=== PATIENT | male | born 2000 | race Caucasian/White ===

== ENCOUNTER 2024-02-14 15:02 | Outpatient (AMB) | payer OTHER, SELFPAY ==
--- NOTE | 2024-02-14 15:54 | MHC.PC.OV ---
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 ?? Prior PCP:?Venus Quinn. Last office visit/CPE:? 1 yr ago Acute issue(s):? None ?? PMHx:? ADD,. Social Anxiety. Had therapist. SurgHx:? R Jaw surgery. [place] teeth. FHx:? Dad: DM, HTN Mom: HTN. GF: Salivary Gland CA SocHx: Nonsmoker, EtOH None. No drugs PFSH Medical History (Updated 02/14/24 @ 16:24 by Tonny Kirby) TMJ (temporomandibular joint disorder) ADD (attention deficit disorder) Anxiety Surgical History (Updated 02/14/24 @ 16:08 by Yahaira Pepe CMA) [place] teeth extracted Family History (Updated 02/14/24 @ 16:11 by Yahaira Pepe CMA) Mother High blood pressure Father High blood pressure Diabetes Maternal Grandmother High blood pressure Paternal Grandmother High blood pressure Skin cancer Paternal Grandfather Salivary gland cancer Social History (Updated 02/14/24 @ 16:11 by Yahaira Pepe CMA) Housing: House Patient Tobacco Use Status: Never used Tobacco e-Cigarette/Vaping Use: Never Used Second Hand Smoke Exposure: No service: No Current occupational status: unemployed Current occupational exposures/hazards: No Cognitive needs: No Hearing needs: No Vision needs: No Questionnaire PHQ-9 Over the last 2 weeks, how often have you been bothered by any of the following problems? 1. Little interest or pleasure in doing things: not at all 2. Feeling down, depressed, or hopeless: not at all 3. Trouble falling or staying asleep, or sleeping too much: not at all 4. Feeling tired or having little energy: not at all 5. Poor appetite or overeating: not at all 6. Feeling bad about yourself - or that you are a failure or have let yourself or your family down: not at all 7. Trouble concentrating on things, such as reading the newspaper or watching television: more than half the days 8. Moving or speaking so slowly that other people could have noticed. Or the opposite - being so fidgety or restless that you have been moving around a lot more than usual: not at all 9. Thoughts that you would be better off or of hurting yourself in some way: not at all Total score: 2 Depression Screening Interpretation: Negative Depression Screening Done: Yes Source: Developed by Drs. Sal Cotton, Ebony Arce, Samuel Dias and colleagues, with an educational grzegorz from [employer] Thrive Questionnaire Date Thrive assessed: 02/14/24 I am a: Patient What is your living situation today?: I have a steady place to live Within the past 12 months, did the food you bought not last and you didn't have the money to get more?: Never true Within the past 12 months, did you worry whether your food would run out before you got money to buy more?: Never true Do you have trouble paying for medicines?: No Do you have trouble getting transportation to medical appointments?: No Do you have trouble paying your heating and electricity bill?: No Do you have trouble taking care of your child, family member or friend?: No Do you have trouble with day-to-day activities such as bathing, preparing meals, shopping, managing finances, etc.?: No Are you currently unemployed and looking for a job?: Yes Are you interested in more education?: No Please select the resources that you would like help with: None Currently or been in a relationship where the following occur: No concerns reported THRIVE Score: 0 AUDIT C Alcohol Use Questionnaire (AUDIT-C) 1. How often do you have a drink containing alcohol?: Never Total Score: 0 LINDA-7 AMB Questionnaire LINDA-7 Date LINDA - 7 assessed: 02/14/24 Feeling nervous, anxious, or on edge: 2 = More than half the days Not being able to stop or control worryin = Not at all Worrying too much about different things: 0 = Not at all Trouble relaxin = Not at all Being so restless that it is hard to sit still: 0 = Not at all Becoming easily annoyed or irritable: 0 = Not at all Feeling afraid as if something awful might happen: 0 = Not at all Total LINDA-7 score (0-4 normal; 5-9 mild; 10-14 moderate; 15-21 severe): 2 Source: Developed by Drs. Sal Cotton, Ebony Arce, Samuel Dias and colleagues, with an educational grzegorz from [employer] LINDA-7 Assessment Billing LINDA-7 Assessment Tool: LINDA-7 Assessment 91665 Review of Systems Psych Reports anxiety Physical exam (Primary Care) Vital Signs: Last Vital Signs Pulse 73 02/14/24 16:12 Resp 16 02/14/24 16:12 BP 110/68 02/14/24 16:12 Pulse Ox 100 02/14/24 16:12 Oxygen Delivery Method Room Air 02/14/24 16:12 BMI result Body Mass Index 36.2 Tobacco/Smoking Status: Tobacco use Status Tobacco use date assessed 02/14/24 02/14/24 16:14 Patient Tobacco Use Status Never used Tobacco 02/14/24 16:14 e-Cigarette/Vaping Use Never Used 02/14/24 16:14 PHQ-9: PHQ-9 Score PHQ-9: Total score 2 02/17/24 23:57 Depression Screening Interpretation: Negative Thrive Assessment: Date of Thrive Assessment Date Thrive assessed 02/14/24 02/14/24 16:14 Currently or been in a relationship where the following occur: No concerns reported Coding Level of Care Code New Pt Level 3 (96667) Diagnoses ADD (attention deficit disorder) F98.8 Anxiety F41.9 Laboratory exam ordered as part of routine general medical examination Z00.00 Additional Codes LINDA-7 Assessment Billing - LINDA-7 Assessment Tool: LINDA-7 Assessment 97843 ([id number]) Assessment & Plan Assessment & Plan (1) ADD (attention deficit disorder): Code(s): F98.8 - Other specified behavioral and emotional disorders with onset usually occurring in childhood and adolescence Category: Medical Plan: H/o ADD in prior pcps records sending script to trial adderal 10 mg daily (2) Anxiety: Code(s): F41.9 - Anxiety disorder, unspecified Category: Medical Plan: Will monitor (3) Laboratory exam ordered as part of routine general medical examination: Code(s): Z00.00 - Encounter for general adult medical examination without abnormal findings Category: Medical Plan: Check labs Orders: Orders AMB EKG-In Office 02/14/24 F98.8 - Other specified behavioral and emotional disorders with onset usually occurring in childhood and adolescence Free T4 (Free Thyroxine) 02/14/24 E03.9 - Hypothyroidism, unspecified, F98.8 - Other specified behavioral and emotional disorders with onset usually occurring in childhood and adolescence Triiodothyronine T3 Total 02/14/24 E03.9 - Hypothyroidism, unspecified, F98.8 - Other specified behavioral and emotional disorders with onset usually occurring in childhood and adolescence Comprehensive Adrian. Panel Fast 02/14/24 F98.8 - Other specified behavioral and emotional disorders with onset usually occurring in childhood and adolescence, Z00.00 - Encounter for general adult medical examination without abnormal findings LDL Cholesterol Direct 02/14/24 E78.5 - Hyperlipidemia, unspecified, F98.8 - Other specified behavioral and emotional disorders with onset usually occurring in childhood and adolescence Lipid Panel 02/14/24 F98.8 - Other specified behavioral and emotional disorders with onset usually occurring in childhood and adolescence, Z00.00 - Encounter for general adult medical examination without abnormal findings Thyroid Stimulating Hormone 02/14/24 E03.9 - Hypothyroidism, unspecified, F98.8 - Other specified behavioral and emotional disorders with onset usually occurring in childhood and adolescence Medications: New dextroamphetamine-amphetamine 10 mg ER (Adderall XR) MassPat. Edified. Partial Fill upon patient request. 10 mg PO QAM 28 days 28 caps 0RF F98.8 - Other specified behavioral and emotional disorders with onset usually occurring in childhood and adolescence
[2024-02-14 16:12] VITALS: BP 110/68; PULSE 73; RESP 16; O2SAT 100; BMI 36.2
== END 2024-02-14 17:07 | disposition home or self-care (01) ==
PROVIDERS: PCP Family Medicine; Visit Provider Family Medicine
DX: F98.8 Other specified behavioral and emotional disorders with onset usually occurring in childhood and adolescence (principal); F41.9 Anxiety disorder, unspecified; Z00.00 Encounter for general adult medical examination without abnormal findings

== ENCOUNTER → 2024-02-14 15:02 | Outpatient (BNVA) | payer OTHER, SELFPAY | PROVIDERS: PCP Family Medicine; Visit Provider Family Medicine | DX: F98.8 Other specified behavioral and emotional disorders with onset usually occurring in childhood and adolescence (principal); F41.9 Anxiety disorder, unspecified | CPT/HCPCS: 96127 ==

== ENCOUNTER 2024-02-25 07:51 | Outpatient (REF) | payer OTHER, SELFPAY ==
[2024-02-25 11:39] LABS: Alanine Aminotransferase 59 U/L (0-40); Albumin Level 4.5 g/dL (3.5-5.0); Alkaline Phosphatase 108 U/L (39-117); Anion Gap 11 (12-20); Aspartate Amino Transferase 35 U/L (5-37); Bilirubin Total 0.8 mg/dL (0.0-1.0); Blood Urea Nitrogen 13 mg/dL (9-16); Carbon Dioxide 30 mmol/L (22-29); Chloride 105 mmol/L (96-108); Cholesterol 199 mg/dL (<200); Estimated Glomerular Filt Rate > 60; Glucose Fasting 84 mg/dL (60-99); HDL Cholesterol 35 mg/dL (>40); LDL Cholesterol Calculated 123 mg/dL (<100); Potassium 4.2 mmol/L (3.3-5.1); Sodium 142 mmol/L (135-145); Total Protein 7.6 g/dL (6.5-8.0); Triglycerides 206 mg/dL (<150)
[2024-02-25 11:57] LABS: Thyroid Stimulating Hormone 1.93 uIU/mL (0.32-4.0)
[2024-02-26 07:43] LABS: Triiodothyronine T3 Total 124 ng/dL (76-181)
[2024-02-27 03:53] LABS: LDL Cholesterol Direct 138 mg/dL (<100)
== END 2024-02-25 07:52 | disposition home or self-care (01) ==
LOC: HO.WFDLDS 07:51
PROVIDERS: Visit Provider Family Medicine
DX: Z00.00 Encounter for general adult medical examination without abnormal findings (principal); E03.9 Hypothyroidism, unspecified; F98.8 Other specified behavioral and emotional disorders with onset usually occurring in childhood and adolescence; E78.5 Hyperlipidemia, unspecified
CPT/HCPCS: 36415; 80053; 80061; 83721; 84439; 84443; 84480

== ENCOUNTER 2024-04-09 16:30 | Outpatient (AMB) | payer OTHER, SELFPAY ==
--- NOTE | 2024-04-09 16:34 | A.OFFPC_ITS ---
Vital Signs 04/09/24 16:37 Height 5 ft 6 in Weight 182 lb 6 oz BMI 29.4 BP 106/60 Blood Pressure Location Rt brachial Position Sitting Respiration 16 Pulse 79 Pulse Source Pulse Oximeter Temp 98.3 F Temp Source Oral Pulse Oximetry (%) 96 Oxygen Delivery Method Room Air Intake Visit Reasons: f/u ADD, anxiety Intake Note: f/u for add and anxiety Allergies No Known Allergies Allergy (Verified 04/09/24 16:35) Tobacco use date assessed: 02/14/24 Dental Screening Dental Screen Date: 02/14/24 HPI f/u ADD, anxiety HPI Details 23 y/o male presents to f/u ADD, anxiety . Had started him on Adderal 10mg daily. He notes adderall 10mg ER was not very effective. No adverse effects. Labs drawn 02/24/23. Reviewed labs with pt. Triglycerides 206. TC 199. LDL 138. HDL 35. Elevated ALT of 59. Also presents for a physical. [facility] Medical History (Updated 04/09/24 @ 17:08 by Tonny Kirby) TMJ (temporomandibular joint disorder) ADD (attention deficit disorder) Anxiety Surgical History (Updated 02/14/24 @ 16:08 by Yahaira Pepe CMA) [place] teeth extracted Family History (Updated 02/14/24 @ 16:11 by Yahaira Pepe CMA) Mother High blood pressure Father High blood pressure Diabetes Maternal Grandmother High blood pressure Paternal Grandmother High blood pressure Skin cancer Paternal Grandfather Salivary gland cancer Social History (Updated 02/14/24 @ 16:11 by Yahaira Pepe CMA) Housing: House Patient Tobacco Use Status: Never used Tobacco e-Cigarette/Vaping Use: Never Used Second Hand Smoke Exposure: No service: No Current occupational status: unemployed Current occupational exposures/hazards: No Cognitive needs: No Hearing needs: No Vision needs: No Questionnaire PHQ-9 Over the last 2 weeks, how often have you been bothered by any of the following problems? 1. Little interest or pleasure in doing things: not at all 2. Feeling down, depressed, or hopeless: not at all 3. Trouble falling or staying asleep, or sleeping too much: several days 4. Feeling tired or having little energy: several days 5. Poor appetite or overeating: not at all 6. Feeling bad about yourself - or that you are a failure or have let yourself or your family down: not at all 7. Trouble concentrating on things, such as reading the newspaper or watching television: more than half the days 8. Moving or speaking so slowly that other people could have noticed. Or the opposite - being so fidgety or restless that you have been moving around a lot more than usual: not at all 9. Thoughts that you would be better off or of hurting yourself in some way: not at all Total score: 4 Depression Screening Interpretation: Negative Depression Screening Done: Yes 71598 - PHQ-9 Billing: Yes Source: Developed by Drs. Sal Cotton, Ebony Arce, Samuel Dias and colleagues, with an educational grzegorz from [employer]. Thrive Questionnaire Date Thrive assessed: 04/09/24 I am a: Patient What is your living situation today?: I have a steady place to live Within the past 12 months, did the food you bought not last and you didn't have the money to get more?: Never true Within the past 12 months, did you worry whether your food would run out before you got money to buy more?: Never true Do you have trouble paying for medicines?: No Do you have trouble getting transportation to medical appointments?: No Do you have trouble paying your heating and electricity bill?: No Do you have trouble taking care of your child, family member or friend?: No Do you have trouble with day-to-day activities such as bathing, preparing meals, shopping, managing finances, etc.?: No Are you currently unemployed and looking for a job?: Yes Are you interested in more education?: No Please select the resources that you would like help with: None Currently or been in a relationship where the following occur: No concerns reported THRIVE Score: 0 AUDIT C Alcohol Use Questionnaire (AUDIT-C) 1. How often do you have a drink containing alcohol?: Never 3. How often do you have six or more drinks on one occasion?: Never Total Score: 0 LINDA-7 AMB Questionnaire LINDA-7 Date LINDA - 7 assessed: 04/09/24 Feeling nervous, anxious, or on edge: 1 = Several days Not being able to stop or control worryin = Not at all Worrying too much about different things: 0 = Not at all Trouble relaxin = Not at all Being so restless that it is hard to sit still: 0 = Not at all Becoming easily annoyed or irritable: 1 = Several days Feeling afraid as if something awful might happen: 1 = Several days Total LINDA-7 score (0-4 normal; 5-9 mild; 10-14 moderate; 15-21 severe): 3 Source: Developed by Drs. Sal Cotton, Ebony Arce, Samuel Dias and colleagues, with an educational grzegorz from [employer]. LINDA-7 Assessment Billing LINDA-7 Assessment Tool: LINDA-7 Assessment 63153 Review of Systems Const Denies chills, Denies fatigue, Denies fever(s), Denies headache(s) and Denies weakness Eyes Denies change in vision ENT Denies dizziness and Denies headache(s) Card Denies dyspnea Resp Denies cough, Denies dyspnea, Denies wheezing and Denies other (shortness of breath) GI Denies abdominal pain, Denies melena, Denies hematochezia, Denies change in bowel habits, Denies dyspepsia and Denies nausea Denies hematuria and Denies dysuria Musc Denies numbness and Denies tingling Skin/Breast Denies rash, Denies unusual bruising and Denies wounds Neuro Denies dizziness, Denies headache(s), Denies numbness, Denies Sensory deficit (Neuro), Denies tingling and Denies weakness Psych Denies anxiety and Denies depression Endo Denies fatigue Yfn/Lymph Denies easy bleeding and Denies easy bruising Aller/Immun Denies wheezing Physical exam (Primary Care) Vital Signs: Last Vital Signs Temp 98.3 F 04/09/24 16:37 Pulse 79 04/09/24 16:37 Resp 16 04/09/24 16:37 BP 106/60 04/09/24 16:37 Pulse Ox 96 04/09/24 16:37 Oxygen Delivery Method Room Air 04/09/24 16:37 BMI result Body Mass Index 29.4 Tobacco/Smoking Status: Tobacco use Status Tobacco use date assessed 02/14/24 04/09/24 16:40 Patient Tobacco Use Status Never used Tobacco 04/09/24 16:40 e-Cigarette/Vaping Use Never Used 04/09/24 16:40 PHQ-9: PHQ-9 Score PHQ-9: Total score 4 04/09/24 16:58 Depression Screening Interpretation: Negative Thrive Assessment: Date of Thrive Assessment Date Thrive assessed 04/09/24 04/09/24 16:40 Currently or been in a relationship where the following occur: No concerns reported Const General: well developed; No acute distress Nutritional Appearance: well nourished Orientation/consciousness: patient oriented x3 HENMT Head: Yes normocephalic and Yes atraumatic Ears: hearing grossly normal bilaterally and TM's normal bilaterally General nose exam: Normal external nose present and Normal nares present Mouth: Normal oral and palatal mucosa present and moist mucous membranes Teeth and gingiva: dentition normal Throat: Yes posterior oropharynx normal Eyes General: appearance normal, both eyes and all related structures Pupils: Equal, round and reactive pupils present EOM: EOMs intact bilaterally Neck Neck: Yes normal visual inspection, Yes no lymphadenopathy and Yes trachea midline Thyroid: Thyroid normal Carotids: no bruits Lymphatic: no lymphadenopathy noted Chest Chest palpation & inspection: normal inspection of the chest Resp Effort & Inspection: normal respiratory effort Auscultation: clear to auscultation bilaterally Cardio Rate: regular rate Rhythm: regular rhythm Heart sounds: S1 normal heart sound present, S2 normal heart sound present, no gallops, no murmurs and no rubs Bruits: no abdominal aortic bruits and no carotid bruits GI Palpation (GI): No Abdominal aortic bruit present, Soft to palpation, nontender, No hepatosplenomegaly present and No Rebound tenderness present Auscultation: normal bowel sounds General: Yes no CVA tenderness Back/Spine/Pelvis Back: no CVA tenderness Cervical Spine: cervical ROM normal and No Cervical spine tenderness Thoracic/Lumbar Spine: thoraco-lumbar ROM normal, No pain with thoraco-lumbar ROM, No thoracic spinal tenderness and No lumbar spinal tenderness Skin Lesions: no lesions Rashes: no rashes Trauma: no lacerations or abrasions Wounds: no wounds Nails: normal Neuro General: patient oriented x3 and gait normal Cranial nerves: Yes Equal, round and reactive pupils present Cognition (Neuro): normal cognition Gait exam (Neuro): Normal gait present Motor exam (neuro): 5/5 motor strength present throughout Sensory Exam: No Sensory deficit (Neuro) Deep tendon reflexes (DTR's): Right patellar reflex intensity grade: 2+ and Left patellar reflex intensity grade: 2+ Extrem General: Yes normal to inspection and No edema Psych Appearance: grossly normal Affect: normal affect Attitude: cooperative Thought process: Normal thought process present Coding Level of Care Code Est Pt Level 4 (82026) Est Pt Prev Care 18-39y(11206) Diagnoses Adult general medical exam Z00.00 ADD (attention deficit disorder) F98.8 Anxiety F41.9 Elevated LDL cholesterol level E78.00 Low HDL (under 40) E78.6 Elevated ALT measurement R74.01 Additional Codes LINDA-7 Assessment Billing - LINDA-7 Assessment Tool: LINDA-7 Assessment 50007 ([id number]) PHQ-9 - 22316 - PHQ-9 Billing: Yes ([id number]) Assessment & Plan Assessment & Plan (1) Adult general medical exam: Code(s): Z00.00 - Encounter for general adult medical examination without abnormal findings Category: Medical Plan: 23-year-old?male?presents?for?complete?physical?exam Encouraged?healthy?diet?with?active?lifestyle?and?plenty?of?exercise (2) ADD (attention deficit disorder): Code(s): F98.8 - Other specified behavioral and emotional disorders with onset usually occurring in childhood and adolescence Category: Medical Plan: Patient?says?that?Adderall?ER?10?mg was?not?very?effective. Will?try?bring?this?up?to?Adderall?ER?15?mg?q.a.m.. Will?follow-up?in?about?a?month (3) Anxiety: Code(s): F41.9 - Anxiety disorder, unspecified Category: Medical Plan: Adderall?did?not?worsen?anxiety Will?monitor (4) Elevated LDL cholesterol level: Code(s): E78.00 - Pure hypercholesterolemia, unspecified Category: Medical Plan: LDL?cholesterol?is?high Patient?was?not?fully?fasting?at?time Advised?a?diet?lower?in?saturated?fats?and?cholesterol Will?recheck?prior?to?next?visit (5) Low HDL (under 40): Code(s): E78.6 - Lipoprotein deficiency Category: Medical Plan: Encouraged?exercise (6) Elevated ALT measurement: Code(s): R74.01 - Elevation of levels of liver transaminase levels Category: Medical Plan: Mild?elevation?in?ALT Patient?says?he?had?been?sick?with?the?flu?and?lost?a?considerable?weight Will?recheck?liver?enzymes
[2024-04-09 16:37] VITALS: BP 106/60; PULSE 79; RESP 16; TEMP 36.8; O2SAT 96; BMI 29.4
--- OUTSIDE RECORDS SUMMARY | 2024-04-09 16:44 | XMS_ITS | Encounter Summary ---
Author Organization [facility] Address [address] [place] [id number] Phone Care Team Providers Care Mixer Machine Feeder Name Role Phone Kumar Lay MD Primary Care Provider [phone] Encounter Details Date Type Department Care Team (Late st Contact Info) Description 09/11/2016 Documentation [facility] [place] [facility] [address] [place] [address] Family Medicine, Physician [address] [place], [place] [address] Social History Tobacco Use Types Packs/Day Years Used Date Smoking Tobacco: Never Assessed Sex and Gender Information Value Date Recorded Sex Assigned at Male 12/26/2018 3:03 PM EDT Legal Sex Male 4:52 PM EDT Gender Identity Male 12/26/2018 3:03 PM EDT Sexual Orientation Straight 12/26/2018 3: 03 PM EDT documented as of this encounter Plan of Treatment Not on file documented as of this encounter Visit Diagnoses Not on filedocumented in this encounter Care Teams Mixer Machine Feeder Relationship Specialty Start Date End Date Kumar Lay MD [address] [place] [address] [place] [id number] PCP - General Pediatrics 08/26/17 08/16/22 documented as of this encounter
--- OUTSIDE RECORDS SUMMARY | 2024-04-09 16:44 | XMS_ITS | Encounter Summary ---
Author Organization [facility] Address [address] [place] [address] Phone Care Team Providers Care Commercial Airline Pilot Name Role Phone Kumar Lay MD Primary Care Provider [phone] Encounter Details Date Type Department Care Team (Late st Contact Info) Description 10/12/2016 Conversion Encounter [facility] [place] [address] [place] [address] Social History Tobacco Use Types Packs/Day Years [...] on filedocumented in this encounter Care Teams Commercial Airline Pilot Relationship Specialty Start Date End Date Kumar Lay MD [address] [place] [address] PCP - General Pediatrics 08/26/17 08/16/22 documented as of this encounter
--- OUTSIDE RECORDS SUMMARY | 2024-04-09 16:44 | XMS_ITS | Clinical Summary ---
Author Organization [facility] Address [address] [place] [phone] Phone Care Team Providers Care Art Conservator Name Role Phone Unavailable Primary Care Provider Unavailabl e Allergies No known active allergies Medications acetaminophen-code ine 120-12 MG/5ML solution 03/03/2020 Active Active Problems Problem Noted Date Diagnosed Date Social phobia 03/16/2020 Mild scoliosis 12/26/2018 ADD (attention deficit disorder) 03/12/2013 Overview (01/12/2017): Has a diag of ADD (diag with 6 teacher and parent [place]). No LD identified. Has an IEP/504 Accomodations for his ADD symptoms. Not on any medications. Continuing to monitor progress/ performance. 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 Had CT of facial bones which was normal. Resolved. Atopic dermatitis 06/09/2009 12/26/2018 Overview (01/12/2017): Sensitive skin care. Immunizations Immunization Administration Dates Next Due COVID-19 Pfizer, monovalent, 12+ years 2 DTaP 5 06/10/2004, 2,2000,09/05,2000 HPV Vaccine 9 Valent 12/20/2017,10/13/2016,08/12 Hep A, ped/adol 10/13/2016,08/13/2015 Hep B, ped/adol 2000,2000,2000 Hib (PRP-T) 08/14/2001, 1,2000,07/06 IPV 06/10/2004, 2,2000,07/06 Influenza Split 01/22/2012,03/08/2010 Influenza, injectable, quadr ivalent, preservative free 03/01/2021,11/19/2019,12/26/2018,12/20,03/28/2017,12/21/2013,02/14/2013 MMR 06/10/2004,05/13/2001 Meningococcal B Trumenba 03/01/2021,12/30/2019 Meningococcal Conj (Menactra) MCV4P 10/13/2016,0 06/26/2012 Pneumococcal Conjugate 08/14/2001,2000,2000,07/06 Tdap 06/26/2012 Varicella 06/09/2009,05/13/2001 Family History Medical History Relation Name Comments Hypertension Father Bharathi Obesity Father Bharathi No Known Problems Mother Lyudmila Relation Name Status Comments Brother Mauricio Alive Brother: Alive and well Father Bharathi Alive Father: Hyperte nsion Obesity Mother Lyudmila Alive Mother: Hyperte nsion Obesity Other GGF, Sister Darya Alive Sister: Alive a nd well Social History Tobacco Use Types Packs/Day Years Used Date Smoking Tobacco: Never Smokeless Tobacco: Never Tobacco Cessation:Counseling Given: Yes Comments:Never smoker Alcohol Use Standard Drinks/Week Comments No 0 (1 standard drink = 0.6 oz pur e alcohol) Hunger/Food Answer Date Recorded In the last 12 months, did y ou or your family ever eat less than you felt you should because there wasn't enough money for food? No 02/27/2021 Stable Housing Answer Date Recorded Are you worried that in the next 2 months you may not have stable housing? No 02/27/2021 Transportation Concerns Answer Date Rec orded In the last 12 months, have you or your family ever had to go without healthcare because you didn't have a way to get there? No 02/27/2021 Hazards in Home Answer Date Recorded Think about the place you li ve. Do you have problems with any of the following? Pests (mice or roaches), mold, no/not working smoke detectors, water leaks, no window guards. No 2021 Financing Utilities Answer Date Recorde d In the last 12 months, has t he electric, gas, oil, or water company threatened to shut off your services in your home? No 02/27/2021 Safety at Home Answer Date Recorded Are you or your family worried about feeling saf e in your home? No 02/27/2021 Outside Support Answer Date Recorded Do you feel that you need mo re support from other people or programs to help you care for yourself or your family? No 02/27/2021 Understanding Health Concerns Answer Da te Recorded Do you need help understandi ng your or your child's healthcare needs (diagnosis, medications, plan, etc.)? No 02/27/2021 Financing Health Concerns Answer Date R ecorded In the last 12 months, was t here a time when your child needed to see a doctor or get medications or supplies but could not because of cost? No 02/27/2021 Missing School or Work Answer Date Ed rded Did you or your child miss s chool or work because of a health problem that could have been avoided? No 02/27/2021 Sex and Gender Information Value Date Recorded Sex Assigned at Male 12/26/2018 3:03 PM EDT Legal Sex Male 4:52 PM EDT Gender Identity Male 12/26/2018 3:03 PM EDT Sexual Orientation Straight 12/26/2018 3: 03 PM EDT Last Filed Vital Signs Vital Sign Reading Time Taken Comments Blood Pressure 124/83 03/01/2021 1:20 PM EST Pulse 83 03/01/2021 1:20 PM EST Temperature 36.6 ??C (97.8 ??F) 03/01/2021 1:20 PM ES T Respiratory Rate 16 12/26/2018 1:45 PM EDT Oxygen Saturation - - Inhaled Oxygen Concentration - - Weight 60.2 kg (132 lb 12.8 oz) 03/01/2021 1:20 PM EST Height 168.9 cm (5' 6.5 ) 03/01/2021 1:20 PM EST Body Mass Index 21.11 03/01/2021 1:20 PM EST Plan of Treatment Health Maintenance Due Date Last Done Comments DTaP,Tdap,and Td Vaccines (7 - Td or Tdap) 06/26/2022 06/26/2012, 06/10/2004, 11/08/2001, Additional history exists Influenza Vaccines (#1) 2023 03/01/19, 11/19/2019, 12/26/2018, Additional history exists COVID-19 Vaccine (2023-2 5 season) 2023 03/01/2021, 07/23/2020, 07/02/2020 Hepatitis B Vaccines Completed 2000, 2000, 2000 HIB Vaccines Completed 08/14/2001, 10/27, 2000, Additional history exists Pneumococcal Vaccine Completed 08/14/2001, 2000, 2000, Additional history exists IPV Vaccines Completed 06/10/2004, 07/27, 2000, Additional history exists MMR Vaccines Completed 06/10/2004, 05/13/2001 Varicella Vaccines Completed 06/09/2009, 05/13/2001 Hepatitis A Vaccines Completed 10/13/2016, 08/13/19 16 Meningococcal Vaccine Completed 10/13/2016, 013 HPV Vaccines Completed 12/20/2017, 09/26, 08/13/2015 Men B Vaccine Completed 03/01/2021, 12/30/2019
== END 2024-04-09 17:14 | disposition home or self-care (01) ==
PROVIDERS: PCP Family Medicine; Visit Provider Family Medicine
DX: Z00.00 Encounter for general adult medical examination without abnormal findings (principal); F98.8 Other specified behavioral and emotional disorders with onset usually occurring in childhood and adolescence; F41.9 Anxiety disorder, unspecified; E78.00 Pure hypercholesterolemia, unspecified; E78.6 Lipoprotein deficiency; R74.01 Elevation of levels of liver transaminase levels

== ENCOUNTER → 2024-04-09 16:30 | Outpatient (BNVA) | payer OTHER, SELFPAY | PROVIDERS: PCP Family Medicine; Visit Provider Family Medicine | DX: Z00.00 Encounter for general adult medical examination without abnormal findings (principal); F98.8 Other specified behavioral and emotional disorders with onset usually occurring in childhood and adolescence; F41.9 Anxiety disorder, unspecified; E78.00 Pure hypercholesterolemia, unspecified; E78.6 Lipoprotein deficiency; R74.01 Elevation of levels of liver transaminase levels | CPT/HCPCS: 96127 ==

== ENCOUNTER 2024-05-16 08:14 | Outpatient (REF) | payer OTHER, SELFPAY ==
[2024-05-16 11:34] LABS: Alanine Aminotransferase 45 U/L (0-40); Albumin Level 4.5 g/dL (3.5-5.0); Alkaline Phosphatase 111 U/L (39-117); Anion Gap 12 (12-20); Aspartate Amino Transferase 31 U/L (5-37); Bilirubin Total 0.9 mg/dL (0.0-1.0); Blood Urea Nitrogen 16 mg/dL (9-16); Calcium 10.1 mg/dL (8.4-10.2); Carbon Dioxide 31 mmol/L (22-29); Chloride 104 mmol/L (96-108); Cholesterol 209 mg/dL (<200); Estimated Glomerular Filt Rate > 60; Glucose Fasting 97 mg/dL (60-99); HDL Cholesterol 32 mg/dL (>40); LDL Cholesterol Calculated 134 mg/dL (<100); Potassium 4.2 mmol/L (3.3-5.1); Sodium 143 mmol/L (135-145); Total Protein 8.1 g/dL (6.5-8.0); Triglycerides 217 mg/dL (<150)
== END 2024-05-16 08:15 | disposition home or self-care (01) ==
LOC: HO.WFDLDS 08:14
PROVIDERS: Visit Provider Family Medicine
DX: Z00.00 Encounter for general adult medical examination without abnormal findings (principal); R74.01 Elevation of levels of liver transaminase levels; E78.00 Pure hypercholesterolemia, unspecified
CPT/HCPCS: 36415; 80053; 80061

== ENCOUNTER 2024-05-23 11:54 | Outpatient (AMB) | payer OTHER, SELFPAY ==
--- NOTE | 2024-05-23 12:05 | A.OFFPC_ITS ---
Vital Signs 05/23/24 12:07 Height 5 ft 6 in Weight 182 lb 4 oz BMI 29.4 BP 100/70 Blood Pressure Location Lt brachial Position Sitting Respiration 12 Pulse 88 Pulse Source Pulse Oximeter Temp 99.2 F Temp Source Oral Pulse Oximetry (%) 97 Oxygen Delivery Method Room Air Intake Visit Reasons: ADHD + Labs follow-up Intake Note: patient is schedule for a lab result and adhd follow up Ton Cylinder Inspector Required: No Allergies No Known Allergies Allergy (Verified 05/23/24 12:06) Medication List - Last Reconciled 05/23/24 by Tesfaye Rangel MD dextroamphetamine-amphetamine 15 mg ER (Adderall XR) 15 mg PO QAM 30 days Tobacco use date assessed: 02/14/24 Dental Screening Dental Screen Date: 02/14/24 HPI ADHD + Labs follow-up HPI Details 24 y/o male presents to f/u ADHD, labs. He is on Adderall 15mg. Labs drawn 05/16/24. Reviewed labs with pt. Elevated ALT of 45. Triglycerides 217. TC 209. LDL 134. HDL low at 32. Has anxiety. Not on any meds and does not have a therapist. HPI Comments History of Present Illness Details Documentation assistance for Tesfaye Rangel MD, was provided by Tonny Kirby, Respiratory Physician on 05/23/2024 at 12:08 PM EST. I, Dr. aRngel, have read, observed, and verified documentation. [facility] Medical History (Updated 05/23/24 @ 12:30 by Tesfaye Rangel MD) TMJ (temporomandibular joint disorder) ADD (attention deficit disorder) Anxiety Surgical History (Updated 02/14/24 @ 16:08 by ZOHRA Kirkland) [place] teeth extracted Family History (Updated 02/14/24 @ 16:11 by ZOHRA Kirkland) Mother High blood pressure Father High blood pressure Diabetes Maternal Grandmother High blood pressure Paternal Grandmother High blood pressure Skin cancer Paternal Grandfather Salivary gland cancer Social History (Updated 02/14/24 @ 16:11 by ZOHRA Kirkland) Housing: House Patient Tobacco Use Status: Never used Tobacco e-Cigarette/Vaping Use: Never Used Second Hand Smoke Exposure: No service: No Current occupational status: unemployed Current occupational exposures/hazards: No Cognitive needs: No Hearing needs: No Vision needs: No Questionnaire Thrive Questionnaire Date Thrive assessed: 04/09/24 I am a: Patient What is your living situation today?: I have a steady place to live Within the past 12 months, did the food you bought not last and you didn't have the money to get more?: Never true Within the past 12 months, did you worry whether your food would run out before you got money to buy more?: Never true Do you have trouble paying for medicines?: No Do you have trouble getting transportation to medical appointments?: No Do you have trouble paying your heating and electricity bill?: No Do you have trouble taking care of your child, family member or friend?: No Do you have trouble with day-to-day activities such as bathing, preparing meals, shopping, managing finances, etc.?: No Are you currently unemployed and looking for a job?: Yes Are you interested in more education?: No Please select the resources that you would like help with: None Currently or been in a relationship where the following occur: No concerns reported THRIVE Score: 0 LINDA-7 AMB Questionnaire LINDA-7 Date LINDA - 7 assessed: 04/09/24 Source: Developed by Drs. Sal Cotton, Ebony Arce, Samuel Dias and colleagues, with an educational grzegorz from [employer]. Review of Systems Const Denies chills, Denies fatigue, Denies fever(s), Denies headache(s) and Denies weakness ENT Denies dizziness and Denies headache(s) Card Denies dyspnea Resp Denies cough, Denies dyspnea, Denies wheezing and Denies other (shortness of breath) Musc Denies numbness and Denies tingling Neuro Denies dizziness, Denies headache(s), Denies numbness, Denies tingling and Denies weakness Psych Denies anxiety and Denies depression Endo Denies fatigue Aller/Immun Denies wheezing Physical exam (Primary Care) Vital Signs: Last Vital Signs Temp 99.2 F 05/23/24 12:07 Pulse 88 05/23/24 12:07 Resp 12 05/23/24 12:07 BP 100/70 05/23/24 12:07 Pulse Ox 97 05/23/24 12:07 Oxygen Delivery Method Room Air 05/23/24 12:07 BMI result Body Mass Index 29.4 Tobacco/Smoking Status: Tobacco use Status Tobacco use date assessed 02/14/24 05/23/24 12:08 Patient Tobacco Use Status Never used Tobacco 05/23/24 12:08 e-Cigarette/Vaping Use Never Used 05/23/24 12:08 Thrive Assessment: Date of Thrive Assessment Date Thrive assessed 04/09/24 05/23/24 12:08 Currently or been in a relationship where the following occur: No concerns reported Const General: well developed; No acute distress Nutritional Appearance: well nourished Orientation/consciousness: patient oriented x3 HENMT Head: Yes normocephalic and Yes atraumatic Eyes General: appearance normal, both eyes and all related structures Pupils: Equal, round and reactive pupils present EOM: EOMs intact bilaterally Resp Effort & Inspection: normal respiratory effort Auscultation: clear to auscultation bilaterally Cardio Rate: regular rate Rhythm: regular rhythm Heart sounds: S1 normal heart sound present, S2 normal heart sound present, no gallops, no murmurs and no rubs Neuro General: patient oriented x3 and gait normal Cranial nerves: Yes Equal, round and reactive pupils present Psych Affect: normal affect Coding Level of Care Code Est Pt Level 4 (80780) Diagnoses ADD (attention deficit disorder) F98.8 Anxiety F41.9 Elevated LDL cholesterol level E78.00 Elevated ALT measurement R74.01 Cerumen debris on tympanic membrane H61.20 Assessment & Plan Assessment & Plan (1) ADD (attention deficit disorder): Code(s): F98.8 - Other specified behavioral and emotional disorders with onset usually occurring in childhood and adolescence Category: Medical Plan: Medication?is?efficacious. No increased ?anxiety,?decreased?appetite?or?difficulty?sleeping?due?to?medication Continue?medication (2) Anxiety: Code(s): F41.9 - Anxiety disorder, unspecified Category: Medical Plan: Ongoing?anxiety.??He?has?never?had?a?therapist?or?tried?medication. Will?refer?him?for?therapy We?can?discuss?medications?if?he would like (3) Elevated LDL cholesterol level: Code(s): E78.00 - Pure hypercholesterolemia, unspecified Category: Medical Plan: LDL?cholesterol?is?still?high Encouraged?a?diet?lower?in?saturate d?fats?and?cholesterol.??Encouraged?exercise?and?weight?loss Will?recheck?route?at?next?visit (4) Elevated ALT measurement: Code(s): R74.01 - Elevation of levels of liver transaminase levels Category: Medical Plan: ALT?has?been?elevated.??Initially?patient?noted?that?he?had?been?sick?prior?to getting?his?labs?drawn. ALT?has?significantly?decreased?but?is?still?mildly?elevated. Will?continue?to?monitor (5) Cerumen debris on tympanic membrane: Code(s): H61.20 - Impacted cerumen, unspecified ear Category: Medical Plan: Patient?seems?to?have?impacted?cerumen?tympanic?membrane. He?has?significantly?decreased?hearing I?not?see?perforation?laceration?the?TM He?can?try?some?Debrox?drops?to?soften?cerumen. Patient?wants?referral?to?ENT- referred Orders: Orders Comprehensive [place]. Panel Fast Today R74.01 - Elevation of levels of liver transaminase levels, Z00.00 - Encounter for general adult medical examination without abnormal findings Drug Screen Urine Today F98.8 - Other specified behavioral and emotional disorders with onset usually occurring in childhood and adolescence Lipid Panel Today E78.00 - Pure hypercholesterolemia, unspecified, Z00.00 - Encounter for general adult medical examination without abnormal findings Referrals Ear/Nose/Throat Referral H61.20 - Impacted cerumen, unspecified ear, H91.90 - Unspecified hearing loss, unspecified ear Nurse Navigator Referral F41.9 - Anxiety disorder, unspecified
[2024-05-23 12:07] VITALS: BP 100/70; PULSE 88; RESP 12; TEMP 37.3; O2SAT 97; BMI 29.4
== END 2024-05-23 12:26 | disposition home or self-care (01) ==
LOC: HO.HMCFM 11:55
PROVIDERS: PCP Family Medicine; Visit Provider Family Medicine
DX: F98.8 Other specified behavioral and emotional disorders with onset usually occurring in childhood and adolescence (principal); F41.9 Anxiety disorder, unspecified; E78.00 Pure hypercholesterolemia, unspecified; R74.01 Elevation of levels of liver transaminase levels; H61.20 Impacted cerumen, unspecified ear

== ENCOUNTER 2024-09-19 08:24 | Outpatient (REF) | payer OTHER, SELFPAY ==
--- OUTSIDE RECORDS SUMMARY | 2024-09-19 08:32 | XMS_ITS | Encounter Summary ---
Author Organization [facility] Address [address] [place] [phone] Phone Care Team Providers Care Clinical Scientist Name Role Phone Kumar Lay MD Primary Care Provider [phone] Encounter Details Date Type Department Care Team (Late st Contact Info) Description 10/12/2016 Conversion Encounter [facility] [address] [place] [address] Social History Tobacco Use Types Packs/Day Years [...] on filedocumented in this encounter Care Teams Clinical Scientist Relationship Specialty Start Date End Date Kumar Lay MD [address] [place] [address] PCP - General Pediatrics 08/26/17 08/16/22 documented as of this encounter
[2024-09-19 11:35] LABS: Alanine Aminotransferase 38 U/L (0-40); Albumin Level 4.8 g/dL (3.5-5.0); Alkaline Phosphatase 105 U/L (39-117); Anion Gap 13 (12-20); Aspartate Amino Transferase 32 U/L (5-37); Blood Urea Nitrogen 14 mg/dL (9-16); Calcium 9.6 mg/dL (8.4-10.2); Carbon Dioxide 28 mmol/L (22-29); Chloride 106 mmol/L (96-108); Cholesterol 181 mg/dL (<200); Estimated Glomerular Filt Rate > 60; HDL Cholesterol 32 mg/dL (>40); Potassium 3.9 mmol/L (3.3-5.1); Sodium 143 mmol/L (135-145); Total Protein 7.5 g/dL (6.5-8.0); Triglycerides 213 mg/dL (<150)
[2024-09-19 11:40] LABS: Cannabinoid Screen Urine Not Detected (Not Detect)
== END 2024-09-19 08:25 | disposition home or self-care (01) ==
LOC: HO.WFDLDS 08:24
PROVIDERS: Visit Provider Family Medicine
DX: Z51.81 Encounter for therapeutic drug level monitoring (principal); Z00.00 Encounter for general adult medical examination without abnormal findings; R74.01 Elevation of levels of liver transaminase levels; F98.8 Other specified behavioral and emotional disorders with onset usually occurring in childhood and adolescence; E78.00 Pure hypercholesterolemia, unspecified
CPT/HCPCS: 80053; 80061; 80307

== ENCOUNTER 2024-09-23 08:25 | Outpatient (AMB) | payer OTHER, SELFPAY ==
--- NOTE | 2024-09-23 08:30 | A.OFFPC_ITS ---
Vital Signs 09/23/24 08:32 Height 5 ft 6 in Weight 176 lb 4 oz BMI 28.4 BP 110/68 Blood Pressure Location Lt brachial Position Sitting Respiration 12 Pulse 77 Pulse Source Pulse Oximeter Temp 97.2 F Temp Source Oral Pulse Oximetry (%) 96 Oxygen Delivery Method Room Air Intake Visit Reasons: f/u HLD, liver enzymes, anxiety/ADD Intake Note: Follow up hld and review labs Laborer Livestock Required: No Allergies No Known Allergies Allergy (Verified 09/23/24 08:30) Medication List - Last Reconciled 09/23/24 by Tesfaye Rangel MD dextroamphetamine-amphetamine 15 mg ER (Adderall XR) 15 mg PO QAM 30 days Tobacco use date assessed: 09/23/24 Dental Screening Dental Screen Date: 02/14/24 Did you have a dental visit in the last 12 months?: Yes Did you have a dental problem in the last 6 months where you did not have access to dental care?: No Was dental information given to patient?: Patient has dentist HPI f/u HLD, liver enzymes, anxiety/ADD HPI Details Patient returns to follow-up ADD as well as elevated liver enzymes and lipids. Also following up anxiety Patient using Adderall as prescribed. He says that in his working well for him Denies any difficulties with worsened anxiety, sleep or appetite from this medication. Patient says that his anxiety issues had improved. He was contacted to connect him with a therapist but he did not follow through. Does not feel he a therapist at this time. He has lost about 6 lb of weight and is hydrating well. Working on diet lower in saturated fats and cholesterol. Not currently exercising. [facility] Medical History (Updated 05/23/24 @ 12:30 by Tesfaye Rangel MD) TMJ (temporomandibular joint disorder) ADD (attention deficit disorder) Anxiety Surgical History (Updated 02/14/24 @ 16:08 by ZOHRA Kirkland) [place] teeth extracted Family History (Updated 02/14/24 @ 16:11 by ZOHRA Kirkland) Mother High blood pressure Father High blood pressure Diabetes Maternal Grandmother High blood pressure Paternal Grandmother High blood pressure Skin cancer Paternal Grandfather Salivary gland cancer Social History (Updated 02/14/24 @ 16:11 by ZOHRA Kirkland) Housing: House Patient Tobacco Use Status: Never used Tobacco e-Cigarette/Vaping Use: Never Used Second Hand Smoke Exposure: No service: No Current occupational status: unemployed Current occupational exposures/hazards: No Cognitive needs: No Hearing needs: No Vision needs: No Questionnaire Thrive Questionnaire Date Thrive assessed: 04/09/24 I am a: Patient What is your living situation today?: I have a steady place to live Within the past 12 months, did the food you bought not last and you didn't have the money to get more?: Never true Within the past 12 months, did you worry whether your food would run out before you got money to buy more?: Never true Do you have trouble paying for medicines?: No Do you have trouble getting transportation to medical appointments?: No Do you have trouble paying your heating and electricity bill?: No Do you have trouble taking care of your child, family member or friend?: No Do you have trouble with day-to-day activities such as bathing, preparing meals, shopping, managing finances, etc.?: No Are you currently unemployed and looking for a job?: Yes Are you interested in more education?: No Please select the resources that you would like help with: None Currently or been in a relationship where the following occur: No concerns reported THRIVE Score: 0 LINDA-7 AMB Questionnaire LINDA-7 Date LINDA - 7 assessed: 04/09/24 Source: Developed by Drs. Sal Cotton, Ebony Arce, Samuel Dias and colleagues, with an educational grzegorz from [employer]. Review of Systems Const Denies chills, Denies fatigue, Denies fever(s), Denies headache(s) and Denies weakness ENT Denies dizziness and Denies headache(s) Card Denies chest pain, Denies lightheadedness, Denies dyspnea and Denies other (Palpitations) Resp Denies cough, Denies dyspnea, Denies wheezing and Denies other ( shortness of breath) Musc Denies numbness and Denies tingling Neuro Denies dizziness, Denies headache(s), Denies numbness, Denies tingling, Denies paresthesias and Denies weakness Psych Denies anxiety and Denies depression Endo Denies fatigue Aller/Immun Denies wheezing Physical exam (Primary Care) Vital Signs: Last Vital Signs Temp 97.2 F 09/23/24 08:32 Pulse 77 09/23/24 08:32 Resp 12 09/23/24 08:32 BP 110/68 09/23/24 08:32 Pulse Ox 96 09/23/24 08:32 Oxygen Delivery Method Room Air 09/23/24 08:32 BMI result Body Mass Index 28.4 Tobacco/Smoking Status: Tobacco use Status Tobacco use date assessed 09/23/24 09/23/24 08:34 Patient Tobacco Use Status Never used Tobacco 09/23/24 08:30 e-Cigarette/Vaping Use Never Used 09/23/24 08:30 Thrive Assessment: Date of Thrive Assessment Date Thrive assessed 04/09/24 09/23/24 08:30 Currently or been in a relationship where the following occur: No concerns reported Const General: no acute distress and well developed Nutritional Appearance: well nourished Orientation/consciousness: patient oriented x3 HENMT Head: Yes normocephalic and Yes atraumatic Eyes General: appearance normal, both eyes and all related structures Pupils: Equal, round and reactive pupils present EOM: EOMs intact bilaterally Resp Effort & Inspection: normal respiratory effort Auscultation: clear to auscultation bilaterally Cardio Rate: regular rate Rhythm: regular rhythm Heart sounds: S1 normal heart sound present, S2 normal heart sound present, no gallops, no murmurs and no rubs Neuro General: patient oriented x3 and gait normal Cranial nerves: Yes Equal, round and reactive pupils present Psych Affect: normal affect Coding Level of Care Code Est Pt Level 4 (62100) Diagnoses ADD (attention deficit disorder) F98.8 Anxiety F41.9 Elevated ALT measurement R74.01 Elevated LDL cholesterol level E78.00 Assessment & Plan Assessment & Plan (1) ADD (attention deficit disorder): Code(s): F98.8 - Other specified behavioral and emotional disorders with onset usually occurring in childhood and adolescence Category: Medical Plan: Medication is efficacious and not causing any adverse effects. Continue Adderall ER 15 mg daily (2) Anxiety: Code(s): F41.9 - Anxiety disorder, unspecified Category: Medical Plan: Stable. He does not feel he needs a therapist at this time I let him know he can call to get referred to a therapist at any time (3) Elevated ALT measurement: Code(s): R74.01 - Elevation of levels of liver transaminase levels Category: Medical Plan: Liver enzymes were elevated at prior measurements. He has been working on weight loss and good hydration Liver enzymes now in normal range Will monitor periodically (4) Elevated LDL cholesterol level: Code(s): E78.00 - Pure hypercholesterolemia, unspecified Category: Medical Plan: LDL cholesterol much improved and now and 107. Still a little above goal less than 100 HDL is still low Encouraged diet lower in saturated fats and cholesterol, encouraged exercise and encouraged weight loss. Will continue to monitor Orders: Orders Lipid Panel Today E78.00 - Pure hypercholesterolemia, unspecified, Z00.00 - Encounter for general adult medical examination without abnormal findings Comprehensive [place]. Panel Fast Today R74.01 - Elevation of levels of liver transaminase levels, Z00.00 - Encounter for general adult medical examination without abnormal findings
[2024-09-23 08:32] VITALS: BP 110/68; PULSE 77; RESP 12; TEMP 36.2; O2SAT 96; BMI 28.4
--- OUTSIDE RECORDS SUMMARY | 2024-09-23 08:39 | XMS_ITS | Encounter Summary ---
Author Organization [facility] Address [address] [place] [phone] Phone Care Team Providers Care Network Project Manager Name Role Phone Kumar Lay MD Primary Care Provider [phone] Encounter Details Date Type Department Care Team (Late st Contact Info) Description 10/12/2016 Conversion Encounter [facility] [address] [place] [address] Social History Tobacco Use Types Packs/Day Years [...] on filedocumented in this encounter Care Teams Network Project Manager Relationship Specialty Start Date End Date Kumar Lay MD [address] [place] [address] PCP - General Pediatrics 08/26/17 08/16/22 documented as of this encounter
== END 2024-09-23 08:52 | disposition home or self-care (01) ==
LOC: HO.HMCFM 08:26
PROVIDERS: PCP Family Medicine; Visit Provider Family Medicine
DX: F98.8 Other specified behavioral and emotional disorders with onset usually occurring in childhood and adolescence (principal); F41.9 Anxiety disorder, unspecified; R74.01 Elevation of levels of liver transaminase levels; E78.00 Pure hypercholesterolemia, unspecified

== ENCOUNTER 2025-01-27 08:28 | Outpatient (AMB) | payer OTHER, SELFPAY ==
--- OUTSIDE RECORDS SUMMARY | 2025-01-27 08:32 | XMS_ITS | Encounter Summary ---
Author Organization [facility] Address [address] [place] [phone] Phone Care Team Providers Care Rehabilitator Name Role Phone Kumar Lay MD Primary Care Provider [phone] Encounter Details Date Type Department Care Team (Late st Contact Info) Description 10/12/2016 Conversion Encounter [facility] [address] [place] [address] Social History Tobacco Use Types Packs/Day Years [...] on filedocumented in this encounter Care Teams Rehabilitator Relationship Specialty Start Date End Date Kumar Lay MD [address] [place] [address] PCP - General Pediatrics 08/26/17 08/16/22 documented as of this encounter
--- NOTE | 2025-01-27 08:33 | A.OFFPC_ITS ---
Vital Signs 01/27/25 08:35 Height 5 ft 6 in Weight 164 lb 2 oz BMI 26.5 BP 100/68 Blood Pressure Location Rt brachial Position Sitting Respiration 14 Pulse 90 Pulse Source Pulse Oximeter Temp 98 F Temp Source Temporal Artery Scan Pulse Oximetry (%) 96 Oxygen Delivery Method Room Air Intake Visit Reasons: ADD and Labs Intake Note: Henok presents in the office today to follow up to his ADD and Labs. Director Of Community Education Required: No Allergies No Known Allergies Allergy (Verified 01/27/25 08:34) Medication List - Last Reconciled 01/27/25 by Tesfaye Rangel MD dextroamphetamine-amphetamine 15 mg ER (Adderall XR) 15 mg PO QAM 30 days Tobacco use date assessed: 01/27/25 Dental Screening Dental Screen Date: 01/27/25 Did you have a dental visit in the last 12 months?: Yes Did you have a dental problem in the last 6 months where you did not have access to dental care?: No Was dental information given to patient?: Patient has dentist HPI ADD and Labs HPI Details 24 y/o male presents to f/u ADD/labs. He is on Adderall 15mg. He denies any issues with sleep, appetite issues, increased anxiety. He notes he feels Adderall has not been helping as it used to before. Last labs drawn 09/19/24. Triglycerides 213. TC 181. LDL 107. HDL low at 32. Liver enzymes improved to normal range. Reports ongoing issues with anxiety. [facility] Medical History (Updated 05/23/24 @ 12:30 by Tesfaye Rangel MD) TMJ (temporomandibular joint disorder) ADD (attention deficit disorder) Anxiety Surgical History (Updated 02/14/24 @ 16:08 by ZOHRA Kirkland) Lagrange teeth extracted Family History (Updated 02/14/24 @ 16:11 by ZOHRA Kirkland) Mother High blood pressure Father High blood pressure Diabetes Maternal Grandmother High blood pressure Paternal Grandmother High blood pressure Skin cancer Paternal Grandfather Salivary gland cancer Social History (Updated 02/14/24 @ 16:11 by ZOHRA Kirkland) Housing: House Alcohol intake: never Patient Tobacco Use Status: Never used Tobacco e-Cigarette/Vaping Use: Never Used Second Hand Smoke Exposure: No service: No Current occupational status: unemployed Current occupational exposures/hazards: No Cognitive needs: No Hearing needs: No Vision needs: No Questionnaire Thrive Questionnaire Date Thrive assessed: 04/09/24 I am a: Patient What is your living situation today?: I have a steady place to live Within the past 12 months, did the food you bought not last and you didn't have the money to get more?: Never true Within the past 12 months, did you worry whether your food would run out before you got money to buy more?: Never true Do you have trouble paying for medicines?: No Do you have trouble getting transportation to medical appointments?: No Do you have trouble paying your heating and electricity bill?: No Do you have trouble taking care of your child, family member or friend?: No Do you have trouble with day-to-day activities such as bathing, preparing meals, shopping, managing finances, etc.?: No Are you currently unemployed and looking for a job?: Yes Are you interested in more education?: No Please select the resources that you would like help with: None Currently or been in a relationship where the following occur: No concerns reported THRIVE Score: 0 LINDA-7 AMB Questionnaire LINDA-7 Date LINDA - 7 assessed: 04/09/24 Source: Developed by Drs. Sal Cotton, Ebony Arce, Samuel Dias and colleagues, with an educational grzegorz from [employer]. Physical exam (Primary Care) Vital Signs: Last Vital Signs Temp 98 F 01/27/25 08:35 Pulse 90 01/27/25 08:35 Resp 14 01/27/25 08:35 BP 100/68 01/27/25 08:35 Pulse Ox 96 01/27/25 08:35 Oxygen Delivery Method Room Air 01/27/25 08:35 BMI result Body Mass Index 26.5 Tobacco/Smoking Status: Tobacco use Status Tobacco use date assessed 01/27/25 01/27/25 08:38 Patient Tobacco Use Status Never used Tobacco 01/27/25 08:35 e-Cigarette/Vaping Use Never Used 01/27/25 08:35 Thrive Assessment: Date of Thrive Assessment Date Thrive assessed 04/09/24 01/27/25 08:33 Currently or been in a relationship where the following occur: No concerns reported Coding Level of Care Code Est Pt Level 4 (25872) Diagnoses ADD (attention deficit disorder) F98.8 Elevated LDL cholesterol level E78.00 Elevated ALT measurement R74.01 Anxiety F41.9 Assessment & Plan Assessment & Plan (1) ADD (attention deficit disorder): Code(s): F98.8 - Other specified behavioral and emotional disorders with onset usually occurring in childhood and adolescence Category: Medical Plan: 24-year-old male presents for follow-up ADD Notes that while Adderall 15 mg daily helps, does not feel it is working well as it used to No worsening of anxiety, new problem appetite or sleep Patient is due for updated treatment contract. Also urine drug screen We discussed increasing Adderall from 15 mg to 20 mg daily. Will provide this medication when it is due as long as has given us clean urine drug screen and renewed contract. (2) Elevated LDL cholesterol level: Code(s): E78.00 - Pure hypercholesterolemia, unspecified Category: Medical (3) Elevated ALT measurement: Code(s): R74.01 - Elevation of levels of liver transaminase levels Category: Medical (4) Anxiety: Code(s): F41.9 - Anxiety disorder, unspecified Category: Medical Plan LDL cholesterol and liver enzymes were elevated at last measurements. Repeat labs were ordered but he has not had these drawn yet. I have asked him to repeat these prior to her next visit so I can review Patient agrees Ongoing anxiety He notes he tried seeing a therapist during the COVID pandemic but continuity was poor Willing to try again and I think he would benefit from this Referring him to the nurse navigator to connect with a therapist Briefly mentioned we can discuss medications at subsequent visit if needed Denies SI/HI Orders: Orders Drug Screen Urine Today F98.8 - Other specified behavioral and emotional disorders with onset usually occurring in childhood and adolescence Referrals Nurse Navigator Referral F41.9 - Anxiety disorder, unspecified Medications: On Hold dextroamphetamine-amphetamine 15 mg ER (Adderall XR) Hold Comment: Doctor's Order 15 mg PO QAM 30 caps 0RF 30 days
--- OUTSIDE RECORDS SUMMARY | 2025-01-27 08:33 | XMS_ITS | Encounter Summary ---
Author Organization [facility] Address [address] [place] [phone] Phone Care Team Providers Care Plastic Frame Inserter Name Role Phone Kumar Lay MD Primary Care Provider [phone] Encounter Details Date Type Department Care Team (Late st Contact Info) Description 09/11/2016 Documentation [facility] [place] Family Medicine [address] [place] [address] Family Medicine, Physician [address] [place], [place] [id number] Social History Tobacco Use Types Packs/Day Years [...] on filedocumented in this encounter Care Teams Plastic Frame Inserter Relationship Specialty Start Date End Date Kumar Lay MD [address] [place] [address] [place] [id number] PCP - General Pediatrics 08/26/17 08/16/22 documented as of this encounter
--- OUTSIDE RECORDS SUMMARY | 2025-01-27 08:33 | XMS_ITS | Clinical Summary ---
Author Organization [facility] Address [address] [place] [phone] Phone Care Team Providers Care Public Works Inspector Name Role Phone Unavailable Primary Care Provider [...] February 2020 - 2nd operation Seen in [place] [facility] for lock jaw . Had CT [...] 83 03/01/2021 1:20 PM EST Temperature 36.6 C (97.8 F) 03/01/2021 1:20 PM EST Respiratory Rate 16 12/26/2018 1:45 PM EDT [...] 11/08/2001, Additional history exists Influenza Vaccines (#1) 2024 03/01/19 22, 11/19/2019, 12/26/2018, Additional history exists COVID-19 Vaccine (2024-2 6 season) 2024 03/01/2021, 07/23/2020, 07/02/2020 Hepatitis B Vaccines Completed [...]
[2025-01-27 08:35] VITALS: BP 100/68; PULSE 90; RESP 14; TEMP 36.6; O2SAT 96; BMI 26.5
== END 2025-01-27 09:47 | disposition home or self-care (01) ==
LOC: HO.HMCFM 08:29
PROVIDERS: PCP Family Medicine; Visit Provider Family Medicine
DX: F98.8 Other specified behavioral and emotional disorders with onset usually occurring in childhood and adolescence (principal); E78.00 Pure hypercholesterolemia, unspecified; R74.01 Elevation of levels of liver transaminase levels; F41.9 Anxiety disorder, unspecified

== ENCOUNTER 2025-01-27 08:28 | Outpatient (REF) | payer OTHER, SELFPAY ==
[2025-01-27 12:01] LABS: Cannabinoid Screen Urine Not Detected (Not Detect)
== END 2025-01-27 08:29 | disposition home or self-care (01) ==
LOC: HO.LNP 08:28
PROVIDERS: PCP Family Medicine; Visit Provider Family Medicine
DX: F98.8 Other specified behavioral and emotional disorders with onset usually occurring in childhood and adolescence (principal); E78.00 Pure hypercholesterolemia, unspecified; R74.01 Elevation of levels of liver transaminase levels; F41.9 Anxiety disorder, unspecified; Z79.899 Other long term (current) drug therapy
CPT/HCPCS: 80307

== ENCOUNTER 2025-01-31 08:46 | Outpatient (REF) | payer OTHER, SELFPAY ==
--- OUTSIDE RECORDS SUMMARY | 2025-01-31 08:49 | XMS_ITS | Encounter Summary ---
Author Organization [facility] Address [address] [place] [phone] Phone Care Team Providers Care Cosmetician Name Role Phone Kumar Lay MD Primary Care Provider [phone] Encounter Details Date Type Department Care Team (Late st Contact Info) Description 10/12/2016 Conversion Encounter [facility] [address] [place] [address] Social History Tobacco Use Types Packs/Day Years [...] on filedocumented in this encounter Care Teams Cosmetician Relationship Specialty Start Date End Date Kumar Lay MD [address] [place] [address] PCP - General Pediatrics 08/26/17 08/16/22 documented as of this encounter
--- OUTSIDE RECORDS SUMMARY | 2025-01-31 08:49 | XMS_ITS | Encounter Summary ---
Author Organization [facility] Address [address] [place] [phone] Phone Care Team Providers Care Quail Farmer Name Role Phone Kumar Lay MD Primary Care Provider [phone] Encounter Details Date Type Department Care Team (Late st Contact Info) Description 09/11/2016 Documentation [facility] [place] Family Medicine [address] [place] [address] Family Medicine, Physician [address] [place], [place] [phone] Social History Tobacco Use Types Packs/Day Years [...] on filedocumented in this encounter Care Teams Quail Farmer Relationship Specialty Start Date End Date Kumar Lay MD [address] [place] [address] [place] [id number] PCP - General Pediatrics 08/26/17 08/16/22 documented as of this encounter
--- OUTSIDE RECORDS SUMMARY | 2025-01-31 08:50 | XMS_ITS | Clinical Summary ---
Author Organization [facility] Address [address] [place] [phone] Phone Care Team Providers Care Chipper Operator Name Role Phone Unavailable Primary Care Provider [...] February 2020 - 2nd operation Seen in [place] ER for lock jaw . Had CT [...]
[2025-01-31 10:39] LABS: Cannabinoid Screen Urine Not Detected (Not Detect)
[2025-01-31 10:40] LABS: Alanine Aminotransferase 35 U/L (0-40); Albumin Level 4.9 g/dL (3.5-5.0); Alkaline Phosphatase 97 U/L (39-117); Anion Gap 13 (12-20); Aspartate Amino Transferase 40 U/L (5-37); Blood Urea Nitrogen 16 mg/dL (9-16); Calcium 9.8 mg/dL (8.4-10.2); Carbon Dioxide 29 mmol/L (22-29); Chloride 107 mmol/L (96-108); Cholesterol 164 mg/dL (<200); Estimated Glomerular Filt Rate > 60; HDL Cholesterol 33 mg/dL (>40); Potassium 4.1 mmol/L (3.3-5.1); Sodium 145 mmol/L (135-145); Total Protein 7.7 g/dL (6.5-8.0); Triglycerides 155 mg/dL (<150)
== END 2025-01-31 08:47 | disposition home or self-care (01) ==
LOC: HO.LAB 08:46
PROVIDERS: PCP Family Medicine; Visit Provider Family Medicine
DX: Z00.00 Encounter for general adult medical examination without abnormal findings (principal); E78.00 Pure hypercholesterolemia, unspecified; R74.01 Elevation of levels of liver transaminase levels; Z51.81 Encounter for therapeutic drug level monitoring
CPT/HCPCS: 80053; 80061; 80307